=== PATIENT | male | born 1995 | race Caucasian/White ===

== ENCOUNTER 2016-06-20 18:15 | Emergency (ER) | payer BC, OTHER ==
[2016-06-20 19:15] LABS: Hematocrit 45 % (42-52); Hemoglobin 15.2 g/dl (14.0-18.0); Mean Corpuscular HGB Conc 34 g/dl (31-36); Mean Corpuscular Hemoglobin 32 pg (27-31); Mean Corpuscular Volume 93 fL (80-94); Mean Platelet Volume 9 um3 (7.4-10.4); Red Blood Count 4.82 10^6/ul (4.0-5.4); Red Cell Distribution Width 12 % (10.5-15); White Blood Count 6.6 10^3/ul (3.5-10.8)
[2016-06-20 19:17] LABS: Urine Bilirubin Negative (Negative); Urine Glucose Negative (Negative); Urine Nitrite Negative (Negative)
[2016-06-20 19:29] LABS: Benzodiazepine Urine Screen None Detected (None Detect)
[2016-06-20 19:30] LABS: ALT 23 U/L (7-52); AST 32 U/L (13-39); Albumin 4.5 g/dL (3.2-5.2); Alkaline Phosphatase 74 U/L (34-104); Anion Gap 6 mmol/L (2-11); BUN/Creatinine Ratio 15.1 (8-20); Blood Urea Nitrogen 14 mg/dL (6-24); CO2 Carbon Dioxide 26 mmol/L (22-32); Calcium 9.4 mg/dL (8.6-10.3); Chloride 106 mmol/L (101-111); EGFR African American 131.9 (>60); EGFR Non-African American 102.6 (>60); Globulin 2.9 g/dL (2-4); Glucose 89 mg/dL (70-100); Potassium 4.1 mmol/L (3.5-5.0); Sodium 138 mmol/L (133-145); Total Protein 7.4 g/dL (6.4-8.9)
[2016-06-20 20:42] LABS: Acetaminophen < 15 mcg/mL; Alcohol < 10 mg/dL (<10); Salicylate < 2.50 mg/dL (<30)
[2016-06-20 20:53] LABS: TSH (Thyroid Stimulating Horm) 1.52 mcIU/mL (0.34-5.60)
--- NOTE | 2016-06-20 21:00 | ED ---
Ant Dang Billy, scribed for Darrion Vidal MD on 06/20/16 at 1936 . Psychiatric Complaint - HPI Summary HPI Summary: 20 year-old male [employer] student arrived to [employer] [facility] voluntarily for [facility]HE. His roommates and parents had concerns about recent behavioral change starting several days ago, describing hallucinations, delusions, "not acting like himself," and operating in a dream-like state while awake. They report sleep deprivation. He also describes his symptoms as "synethesia," and despite his parents' and roommates' reports, he denies any hallucinations. Additionally , the patient was describing events and actions that his parents state are untrue. No paranoid behavior. He indicated that he has not been sleeping very much recently, taking an unspecified amount of DayQuil (parents report "DayQuil by the bottle"), and traveling often. He does not report any drug use or suicidal/homicidal thoughts. - History Of Current Complaint Chief Complaint: EDMentalHealth Time Seen by Provider: 06/20/16 18:24 Hx Obtained From: Patient, Family/Slimer Onset/Duration: Lasting Days Timing: Constant Severity Initially: Moderate Severity Currently: Moderate Aggravating Factor(s): Recent Stress - patient indicated many recent life changes Alleviating Factor(s): Nothing Associated Signs And Symptoms: Positive: Hallucinating - Parents and patient report different stories, Sleep Disturbance - deprivation. Negative: Paranoid Behavior Has Suicidal: Denies: Thoughts Has Homicidal: Denies: Thoughts - Allergies/Home Medications Allergies/Adverse Reactions: Allergies Allergy/AdvReac Type Severity Reaction Status Date / Time No Known Allergies Allergy Verified 06/20/16 18:16 PMH/Surg Hx/FS Hx/Imm Hx Musculoskeletal History: Reports: Hx of Fracture(s) - right wrist fracture Sensory History: Reports: Hx Contacts or Glasses Opthamlomology History: Reports: Hx Contacts or Glasses Psychiatric History: Denies: Hx Suicide Attempt, Other Psychiatric Issues/Disorders - no PMHx of psychiatric complaints Infectious Disease History: No Infectious Disease History: Denies: Traveled Outside the [place] in Last 30 Days - Family History Known Family History: Positive: Hypertension - maternal , Other - anxiety ( mother); HLD (mother) - Social History Alcohol Use: Weekly Alcohol Amount: 1 drink every other day, on average Substance Use Type: Reports: None Smoking Status (MU): Current Some Day Smoker Review of Systems Negative: Fever Neurological: Other - sleep deprivation All Other Systems Reviewed And Are Negative: Yes Physical Exam Triage Information Reviewed: Yes Vital Signs On Initial Exam: Initial Vitals Temp Pulse Resp BP Pulse Ox 99 F 68 16 129/84 100 06/20/16 18:16 06/20/16 18:16 06/20/16 18:16 06/20/16 18:16 06/20/16 18:16 Vital Signs Reviewed: Yes Appearance: Positive: Well-Appearing, No Pain Distress Skin: Positive: Warm, Skin Color Reflects Adequate Perfusion, Dry Head/Face: Positive: Normal Head/Face Inspection Eyes: Positive: EOMI, ANDREE ENT: Positive: Normal ENT inspection Neck: Positive: Supple, Nontender Respiratory/Lung Sounds: Positive: Clear to Auscultation, Breath Sounds Present Cardiovascular: Positive: RRR Abdomen Description: Positive: Nontender, Soft Bowel Sounds: Positive: Present Musculoskeletal: Positive: Strength/ROM Intact Neurological: Positive: Sensory/Motor Intact, Alert, Oriented to Person Place, Time Psychiatric: Positive: Other - manic and delusional, pressured speech - Timmy Coma Scale Coma Scale Total: 15 Diagnostics - Vital Signs Vital Signs Temp Pulse Resp BP Pulse Ox 06/20/16 18:16 99 F 68 16 129/84 100 - Laboratory Lab Results: Lab Results 06/20/16 06/20/16 06/20/16 Range/Units 19:05 19:05 19:05 WBC 6.6 (3.5-10.8) 10^3/ul RBC 4.82 (4.0-5.4) 10^6/ul Hgb 15.2 (14.0-18.0) g/dl Hct 45 (42-52) % MCV 93 (80-94) fL MCH 32 H (27-31) pg MCHC 34 (31-36) g/dl RDW 12 (10.5-15) % Plt Count 220 (150-450) 10^3/ul MPV 9 (7.4-10.4) um3 Neut % (Auto) 48.2 (38-83) % Lymph % (Auto) 36.7 (25-47) % [place] % (Auto) 11.0 H (1-9) % Eos % (Auto) 3.3 (0-6) % Baso % (Auto) 0.8 (0-2) % Absolute Neuts (auto) 3.2 (1.5-7.7) 10^3/ul Absolute Lymphs (auto) 2.4 (1.0-4.8) 10^3/ul Absolute Monos (auto) 0.7 (0-0.8) 10^3/ul Absolute Eos (auto) 0.2 (0-0.6) 10^3/ul Absolute Basos (auto) 0.1 (0-0.2) 10^3/ul Absolute Nucleated RBC 0.01 10^3/ul Nucleated RBC % 0.1 Sodium 138 (133-145) mmol/L Potassium 4.1 (3.5-5.0) mmol/L Chloride 106 (101-111) mmol/L Carbon Dioxide 26 (22-32) mmol/L Anion Gap 6 (2-11) mmol/L BUN 14 (6-24) mg/dL Creatinine 0.93 (0.67-1.17) mg/dL Est GFR ( Amer) 131.9 (>60) Est GFR (Non-Af Amer) 102.6 (>60) BUN/Creatinine Ratio 15.1 (8-20) Glucose 89 (70-100) mg/dL Calcium 9.4 (8.6-10.3) mg/dL Total Bilirubin 0.70 (0.2-1.0) mg/dL AST 32 (13-39) U/L ALT 23 (7-52) U/L Alkaline Phosphatase 74 (34-104) U/L Total Protein 7.4 (6.4-8.9) g/dL Albumin 4.5 (3.2-5.2) g/dL Globulin 2.9 (2-4) g/dL Albumin/Globulin Ratio 1.6 (1-3) TSH 1.52 (0.34-5.60) mcIU/mL Urine Color Colorless Urine Appearance Clear Urine pH 7.0 (5-9) Ur Specific [place] 1.002 L (1.010-1.030) Urine Protein Negative (Negative) Urine Ketones Negative (Negative) Urine Blood Negative (Negative) Urine Nitrate Negative (Negative) Urine Bilirubin Negative (Negative) Urine Urobilinogen Negative (Negative) Ur Leukocyte Esterase Negative (Negative) Urine Glucose Negative (Negative) Salicylates < 2.50 (<30) mg/dL Urine Opiates Screen (None Detect) Acetaminophen < 15 mcg/mL Ur Barbiturates Screen (None Detect) Ur Phencyclidine Scrn (None Detect) Ur Amphetamines Screen (None Detect) U Benzodiazepines Scrn (None Detect) Urine Cocaine Screen (None Detect) U Cannabinoids Screen (None Detect) Serum Alcohol < 10 (<10) mg/dL 06/20/16 Range/Units 19:05 WBC (3.5-10.8) 10^3/ul RBC (4.0-5.4) 10^6/ul Hgb (14.0-18.0) g/dl Hct (42-52) % MCV (80-94) fL MCH (27-31) pg MCHC (31-36) g/dl RDW (10.5-15) % Plt Count (150-450) 10^3/ul MPV (7.4-10.4) um3 Neut % (Auto) (38-83) % Lymph % (Auto) (25-47) % [place] % (Auto) (1-9) % Eos % (Auto) (0-6) % Baso % (Auto) (0-2) % Absolute Neuts (auto) (1.5-7.7) 10^3/ul Absolute Lymphs (auto) (1.0-4.8) 10^3/ul Absolute Monos (auto) (0-0.8) 10^3/ul Absolute Eos (auto) (0-0.6) 10^3/ul Absolute Basos (auto) (0-0.2) 10^3/ul Absolute Nucleated RBC 10^3/ul Nucleated RBC % Sodium (133-145) mmol/L Potassium (3.5-5.0) mmol/L Chloride (101-111) mmol/L Carbon Dioxide (22-32) mmol/L Anion Gap (2-11) mmol/L BUN (6-24) mg/dL Creatinine (0.67-1.17) mg/dL Est GFR ( Amer) (>60) Est GFR (Non-Af Amer) (>60) BUN/Creatinine Ratio (8-20) Glucose (70-100) mg/dL Calcium (8.6-10.3) mg/dL Total Bilirubin (0.2-1.0) mg/dL AST (13-39) U/L ALT (7-52) U/L Alkaline Phosphatase (34-104) U/L Total Protein (6.4-8.9) g/dL Albumin (3.2-5.2) g/dL Globulin (2-4) g/dL Albumin/Globulin Ratio (1-3) TSH (0.34-5.60) mcIU/mL Urine Color Urine Appearance Urine pH (5-9) Ur Specific [place] (1.010-1.030) Urine Protein (Negative) Urine Ketones (Negative) Urine Blood (Negative) Urine Nitrate (Negative) Urine Bilirubin (Negative) Urine Urobilinogen (Negative) Ur Leukocyte Esterase (Negative) Urine Glucose (Negative) Salicylates (<30) mg/dL Urine Opiates Screen None detected (None Detect) Acetaminophen mcg/mL Ur Barbiturates Screen None detected (None Detect) Ur Phencyclidine Scrn None detected (None Detect) Ur Amphetamines Screen None detected (None Detect) U Benzodiazepines Scrn None detected (None Detect) Urine Cocaine Screen None detected (None Detect) U Cannabinoids Screen None detected (None Detect) Serum Alcohol (<10) mg/dL Result Diagrams: 06/20/16 19:05 06/20/16 19:05 Lab Statement: Any lab studies that have been ordered have been reviewed, and results considered in the medical decision making process. Course/Dx - Course Course Of Treatment: Patient medically clear for Mental Health Evaluation at 20: 10. Assessment/Plan: MHE PENDING AT SHIFT CHANGE STABLE - Differential Dx/Clinical Impression Provider Diagnosis: Mental health problem Discharge - Discharge Plan Condition: Stable Disposition: [facility]IATRIC FAC[place] [place] The documentation as recorded by the Ant garcia Billy accurately reflects the service I personally performed and the decisions made by me, Darrion Vidal MD.
[2016-06-20] MEDS ORDERED: Ziprasidone IM INJ* 20 MG/ML VIAL IM ONE (21:57)
[2016-06-20] MEDS ORDERED: LORazepam TAB(*) 1 MG PO ONE (22:30)
[2016-06-20] MEDS ORDERED: LORazepam INJ* 2 MG/ML 1 ML VIAL IV PUSH ONE (22:31)
[2016-06-21 02:38] VITALS: BP 96/53
--- NOTE | 2016-06-21 02:39 | ED ---
Desean Dang Karl, scribed for Ace Hewitt on 06/21/16 at 0215 . Progress - Progress Note Progress Note: Spoke with Dr. Cash (Psychiatrist) at 2:15 who accepted the pt for transfer at [place]. - Consult/PCP Time Called: 20:35 Course/Dx - Course Course Of Treatment: Patient medically clear for Mental Health Evaluation at 20: 10. - Diagnoses Provider Diagnoses: Mental health problem The documentation as recorded by the Desean garcia Karl accurately reflects the service I personally performed and the decisions made by Marcelina drake Emmanuel.
== END 2016-06-21 05:02 ==
LOC: ED 18:15
DX: F48.9 Nonpsychotic mental disorder, unspecified (principal); F17.200 Nicotine dependence, unspecified, uncomplicated
CPT/HCPCS: 36415; 80053; 80307; 80320; 80329; 81003; 84443; 85025; 93005; 96372; 96374; 99284; G0480; J3486